=== PATIENT | female | born 1950 | race Hispanic/Latino ===

== ENCOUNTER 2017-08-07 22:51 | Observation (INO) | payer OTHER ==
[~2017-08-07] VITALS: Ht 152.4 cm; Wt 78.0 kg
[2017-08-07] MEDS ORDERED: MORPHINE SULFATE 2 MG/ML 1ML SYG ONE (23:14)
[2017-08-07 23:56] LABS: BASOPHILS % (AUTO) 0.5 % (0.0-5.0); EOSINOPHILS % (AUTO) 1.5 % (0.0-8.0); HEMATOCRIT 35.2 % (36-48); LYMPHOCYTES % (AUTO) 14.8 % (21.0-51.0); MEAN CORPUSCULAR HEMOGLOBIN 30.4 pg (27.0-33.0); MEAN CORPUSCULAR HGB CONC 34.3 g/dL (32.0-36.0); MEAN CORPUSCULAR VOLUME 88.6 fL (79-99); MONOCYTES % (AUTO) 5.7 % (3.0-13.0); NEUTROPHILS % (AUTO) 77.5 % (40.0-77.0); PLATELET COUNT (AUTO) 293 K/uL (130-400); RED BLOOD CELL COUNT(AUTO) 3.98 MIL/uL (4.00-5.50); RED CELL DISTRIBUTION WIDTH 14.9 % (11.0-15.5)
[2017-08-08 00:08] LABS: CREATININE 0.9 mg/dL (0.5-1.5); POTASSIUM 3.5 mmol/L (3.5-5.1)
[2017-08-08 00:23] LABS: ALBUMIN 3.5 g/dL (3.5-5.0); BILIRUBIN,TOTAL 0.3 mg/dL (0.2-1.0); CREATINE KINASE MB 1.2 ng/mL (0.5-3.6); TOTAL PROTEIN, SERUM 7.5 g/dL (6.0-8.3)
[2017-08-08] MEDS ORDERED: IOPAMIDOL-370 75 ML VIAL IV ONE (01:06)
[2017-08-08] MEDS ORDERED: SODIUM CHLORIDE 0.9% 1000ML 1,000 ML IV ONE ×2 (01:14→05:22)
[2017-08-08] MEDS ORDERED: MORPHINE SULFATE 2 MG/ML 1ML SYG ONE (01:14)
[2017-08-08] MEDS ORDERED: ONDANSETRON HCL 4 MG/2 ML VIAL ONE (05:22)
[2017-08-08] MEDS ORDERED: MEPERIDINE-PF 25 MG/ML SYG ONE ×2 (05:23→10:40)
[2017-08-08 06:03] LABS: APPEARANCE,URINE Clear (CLEAR); BILIRUBIN,URINE Negative (NEGATIVE); COLOR,URINE Yellow (YELLOW); GLUCOSE, URINE (UA) Negative (NEGATIVE); KETONES,URINE Negative (NEGATIVE); LEUKOCYTE ESTERASE ,URINE Negative (NEGATIVE); NITRATE,URINE Negative (NEGATIVE); OCCULT BLOOD,URINE Nonhemolyzed Trace (NEGATIVE); PH,URINE 5.5 (5.0-8.0); PROTEIN,URINE Negative (NEGATIVE)
[2017-08-08 06:22] LABS: BACTERIA,URINE None Seen /HPF (None Seen); SQUAMOUS EPITHELIAL CELL,UR Few /LPF (0-2); WBC,URINE None Seen /HPF (0-1)
[2017-08-08 14:03] VITALS: BP 126/62
[2017-08-08] MEDS ORDERED: ONDANSETRON HCL 4 MG/2 ML VIAL IVP PRN (14:15)
[2017-08-08] MEDS ORDERED: SODIUM CHLORIDE 0.9% 1000ML 1,000 ML IV SCH (14:15)
[2017-08-08] MEDS ORDERED: MEPERIDINE-PF 25 MG/ML SYG IV PRN (14:15)
[2017-08-08 16:39] VITALS: BP 130/68
[2017-08-14] MEDS ORDERED: LOSA100T29 PO (16:58)
[2017-08-14] MEDS ORDERED: TRAM50TA4 PO (16:58)
[2017-08-14] MEDS ORDERED: FLUT16H NASAL (16:58)
[2017-08-14] MEDS ORDERED: ATOR20TA65 PO (16:58)
[2017-08-14] MEDS ORDERED: DOCU100T8 PO (16:58)
[2017-08-14] MEDS ORDERED: ALBU90AE IH (16:58)
== END 2017-08-08 18:05 | disposition home or self-care (01) ==
LOC: EDH 22:51 → EDHIP 08-08 03:53 → INTOOBSV 08-08 03:53 → 3BH 08-08 13:44
PROVIDERS: ADMIT Surgery; ATTEND Surgery
DX: S62.102A Fracture of unspecified carpal bone, left wrist, initial encounter for closed fracture (principal); S22.20XA Unspecified fracture of sternum, initial encounter for closed fracture; I10 Essential (primary) hypertension; V49.49XA Driver injured in collision with other motor vehicles in traffic accident, initial encounter; Y93.89 Activity, other specified; Y92.410 Unspecified street and highway as the place of occurrence of the external cause; Y99.8 Other external cause status; Z90.49 Acquired absence of other specified parts of digestive tract
CPT/HCPCS: 36415; 70450; 71045; 71260; 72125; 72170; 73110; 80053; 81001; 82550; 82553; 83690; 84484 ×2; 85025; 93005 ×2; 96374; 96375; 99285; G0378 ×14; J2175 ×3; J2405 ×2; J7030 ×2; Q9967

== ENCOUNTER 2017-08-15 06:38 | Day surgery (SDC) | payer OTHER ==
[2017-08-14 17:06] VITALS: BP 110/60
[2017-08-14 17:13] LABS: BASOPHILS % (AUTO) 0.5 % (0.0-5.0); EOSINOPHILS % (AUTO) 1.6 % (0.0-8.0); LYMPHOCYTES % (AUTO) 21.3 % (21.0-51.0); MEAN CORPUSCULAR HEMOGLOBIN 29.7 pg (27.0-33.0); MEAN CORPUSCULAR HGB CONC 33.5 g/dL (32.0-36.0); MEAN CORPUSCULAR VOLUME 88.9 fL (79-99); MONOCYTES % (AUTO) 7.3 % (3.0-13.0); NEUTROPHILS % (AUTO) 69.3 % (40.0-77.0); PLATELET COUNT (AUTO) 416 K/uL (130-400); RED BLOOD CELL COUNT(AUTO) 4.05 MIL/uL (4.00-5.50); RED CELL DISTRIBUTION WIDTH 14.9 % (11.0-15.5); WHITE BLOOD COUNT (AUTO) 7.7 K/uL (4.8-10.8)
[2017-08-14 17:26] LABS: CREATININE 0.9 mg/dL (0.5-1.5); POTASSIUM 4.5 mmol/L (3.5-5.1)
[2017-08-15] VITALS (17 sets, daily range): BP systolic 120–149; BP diastolic 53–77
[~2017-08-15] VITALS: Ht 152.4 cm; Wt 73.2 kg
[~2017-08-15 06:38] MED LIST: ALBU90AE IH; ATOR20TA65 PO; DOCU100T8 PO; FLUT16H NASAL; LOSA100T29 PO; TRAM50TA4 PO
[2017-08-15] MEDS ORDERED: LACTATED RINGERS 1000ML 1,000 ML IV ONE (07:16)
[2017-08-15] MEDS: CEFAZOLIN SODIUM 1 GM VIAL IVP ONE ×2 (07:25→08:12)
[2017-08-15] MEDS ORDERED: SODIUM CHLORIDE 0.9% 10 ML VIAL ONE (07:38)
[2017-08-15] MEDS ORDERED: CEFAZOLIN SODIUM 1 GM VIAL ONE (07:39)
[2017-08-15] MEDS ORDERED: WATER FOR INJECTION,STERILE 20 ML VIAL IJ ONE (08:00)
[2017-08-15] MEDS ORDERED: MIDAZOLAM HCL 1 MG/ML 2ML VIAL ONE (08:21)
[2017-08-15] MEDS ORDERED: PROPOFOL 10 MG/ML 20ML VIAL IV ONE (08:27)
[2017-08-15] MEDS ORDERED: FENTANYL CITRATE PF 50 MCG/1 ML 2ML VIAL ONE (08:43)
[2017-08-15] MEDS ORDERED: ROPIVACAINE 0.5% 5MG/ML 30ML IJ ONE (09:30)
[2017-08-15] MEDS ORDERED: HYDR-309 PO (10:21)
== END 2017-08-15 11:45 | disposition home or self-care (01) ==
LOC: DAH 06:38
PROVIDERS: ATTEND Orthopaedic Surgery
DX: S52.572A Other intraarticular fracture of lower end of left radius, initial encounter for closed fracture (principal); V49.9XXA Car occupant (driver) (passenger) injured in unspecified traffic accident, initial encounter; Y93.9 Activity, unspecified; Y92.89 Other specified places as the place of occurrence of the external cause; Y99.9 Unspecified external cause status; I10 Essential (primary) hypertension; Z90.49 Acquired absence of other specified parts of digestive tract; Z82.49 Family history of ischemic heart disease and other diseases of the circulatory system; Z68.33 Body mass index [BMI] 33.0-33.9, adult; Z98.890 Other specified postprocedural states; Z79.899 Other long term (current) drug therapy
CPT/HCPCS: 25609; 36415; 76000; 80048; 85025; 93005; A4218; A4649 ×3; A6223; C1713 ×2; C1776; J0690 ×2; J2250; J2704; J2795; J3010; J7030; J7120; Q4050

== ENCOUNTER → 2023-09-05 | Outpatient (CLI) | payer OTHER ==
[~2023-09-05] MED LIST changes: +DOCU100T28 PO; -DOCU100T8 PO; +HYDR-4457 PO; +IOHEXOL 350 MG/ML 100ML INFUS..BTL IV ONE; -LOSA100T29 PO; +LOSA100T59 PO; +METOPROLOL TARTRATE 1 MG/ML 5ML VIAL IV ONE
== END | disposition home or self-care (01) ==
LOC: RAH 09:51
PROVIDERS: ATTEND Internal Medicine
DX: R07.9 Chest pain, unspecified (principal); M47.815 Spondylosis without myelopathy or radiculopathy, thoracolumbar region
CPT/HCPCS: 75574; J3490; Q9967

== ENCOUNTER → 2023-09-25 | Outpatient (CLI) | payer OTHER ==
[~2023-09-25] MED LIST changes: -IOHEXOL 350 MG/ML 100ML INFUS..BTL IV ONE; -METOPROLOL TARTRATE 1 MG/ML 5ML VIAL IV ONE
== END | disposition home or self-care (01) ==
LOC: SHCH 14:40
PROVIDERS: ATTEND Internal Medicine
DX: R07.9 Chest pain, unspecified (principal)
CPT/HCPCS: 93306